=== PATIENT | female | born 1965 | race African-American/Black ===

== ENCOUNTER 2021-06-22 23:16 | Emergency (ER) | payer OTHER ==
[~2021-06-22] VITALS: Ht 154.9 cm; Wt 54.0 kg
[2021-06-23 01:21] LABS: HEMATOCRIT 34.2 % (37.0-47.0); HEMOGLOBIN 11 gm/dL (12.0-15.0); RBC 3.57 mil/uL (4.20-5.00); WBC 7.9 thou/uL (4.0-11.0)
[2021-06-23 01:22] LABS: BASOPHILS 0.6 % (0.0-2.0); EOSINOPHILS 1.4 % (0.0-3.0); LYMPHOCYTES 24.2 % (24.0-44.0); MCH 30.9 pg (26.0-34.0); MCHC 32.3 % (28.0-37.0); MCV 95.7 fL (80.0-100.0); MONOCYTES 7.2 % (1.0-8.0); PLATELET COUNT 295 thou/uL (150-400); POLYS 66.6 % (36.0-66.0); RDW 13.1 % (10.5-14.5)
[2021-06-23 01:32] LABS: CREATININE 0.9 mg/dL (0.6-1.0); POTASSIUM 3.8 mmol/L (3.5-5.1); TOTAL BILIRUBIN 0.1 mg/dL (0.2-1.0)
[2021-06-23 01:33] LABS: ALBUMIN 3.9 g/dL (3.4-5.0); TOTAL PROTEIN 7.2 g/dL (6.4-8.2)
[2021-06-23 03:07] VITALS: BP 141/75
--- NOTE | 2021-06-23 07:50 | EKG ---
[address] [address] [employer] [place] [address] ELECTROCARDIOGRAM REPORT Name: ASHLEY PICKERING Room #: [facility] [id number] Admission: 06/22/21 Attend Phys: Discharge: 06/23/21 Date of : 65 Report #: [id number] [facility] ED Test Date: 2021-06-22 Test Time: 23:54:50 Pat Name: ASHLEY PICKERING Department: Room: Gender: F Paper Sales Representative: JAZZY : 1965 Requested By: Carolyn Beasley Order Number: [id number] MD: Tanvir Porter Measurements Intervals [place] Rate: 60 P: 8 KS: 180 QRS: -14 QRSD: 151 T: -17 QT: 459 QTc: 459 Interpretive Statements Sinus rhythm Right bundle branch block Nonspecific T wave abnormality No previous ECG available for comparison Electronically Signed On 06-23-2021 7:50:23 ASSISTANT [employer]ESSMAN by Tanvir Porter [email or web address] <ELECTRONICALLY SIGNED> By: Tanvir Porter MD, [facility] 06/23/21 0750 [id number] Tanvir Porter MD, FACC /EPI
== END 2021-06-23 03:10 | disposition home or self-care (01) ==
LOC: ER 23:16
PROVIDERS: Emergency Medicine
DX: R42 Dizziness and giddiness (principal); J45.909 Unspecified asthma, uncomplicated; I25.2 Old myocardial infarction; E11.9 Type 2 diabetes mellitus without complications; Z90.49 Acquired absence of other specified parts of digestive tract; Z90.710 Acquired absence of both cervix and uterus; Z91.013 Allergy to seafood